=== PATIENT | female | born 1980 ===

== ENCOUNTER → 2016-10-01 | Outpatient (REF) ==
--- NOTE | 2016-10-01 13:10 | REP ---
Clinical: Pain and disability. Technique: AP, lateral, open mouth views of the cervical spine. Findings: Alignment and lordosis maintained. No acute fracture / compression injury or subluxation. Osteophytosis and endplate sclerosis with disc space narrowing at the C5-6 and C4-5 levels. Open mouth view demonstrates normal C1-C2 articulation and odontoid process. 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 Signed by Julio Shannon MD 10/01/2016 01:01 P
== END ==
LOC: M SMT 12:47
PROVIDERS: ATTEND Internal Medicine
DX: Z02.71 Encounter for disability determination (principal)